=== PATIENT | female | born 2000 | race Two or more races ===

== ENCOUNTER 2021-10-25 22:20 | Inpatient (IN) | payer MEDICAID ==
[~2021-10-25] VITALS: Ht 149.9 cm; Wt 50.8 kg
[2021-10-26] VITALS (7 sets, daily range): BP systolic 90–115; BP diastolic 53–75
[2021-10-26] MEDS ORDERED: OLANZapine 5 MG RAPDIS TABLET PO PRN (01:15)
[2021-10-26] MEDS ORDERED: INFLUENZA VIRUS VACCINE QVS 2021-22 (6MO+)/PF 60 MCG/0.5 ML SYRINGE IM. ONE (01:30)
[2021-10-26] MEDS: LORazepam 2 MG TABLET PO PRN ×2 (10:09→17:44)
[2021-10-26] MEDS ORDERED: ACETAMINOPHEN 325 MG TABLET PO PRN (19:15)
[2021-10-26] MEDS ORDERED: OLANZapine 5 MG RAPDIS TABLET PO ONE (19:15)
[2021-10-26] MEDS ORDERED: MAG HYDROX/AL HYDROX/SIMETH ES 30 ML SUSPENSION UDCUP PO PRN (19:15)
[2021-10-26] MEDS ORDERED: LOPERAMIDE HCL 2 MG CAPSULE PO PRN (19:15)
[2021-10-26] MEDS ORDERED: TUBERCULIN, PURIFIED PROTEIN DERIVATIVE 5 TU/0.1 ML SYRINGE ID ONE (19:15)
[2021-10-26] MEDS ORDERED: PROMETHAZINE HCL 25 MG TABLET PO PRN (19:15)
[2021-10-26] MEDS ORDERED: GuaiFENesin/D-METHORPHAN [SUGAR-FREE] 200-20MG/10 ML SYRUP UDCUP PO PRN (19:15)
[2021-10-26] MEDS: MELATONIN 5 MG TABLET PO SCH (20:25)
[2021-10-27 06:16] VITALS: BP 90/52
[2021-10-27 07:35] LABS: BASOPHILS % (AUTO) 0.6 % (0.0-2.0); EOSINOPHILS % (AUTO) 3.6 % (1.0-6.0); HEMATOCRIT 38.3 % (36-46); LYMPHOCYTES # (AUTO) 2.8 K/uL (1.0-4.8); MEAN CORPUSCULAR HGB CONC 33.9 G/dL (31.0-37.0); MEAN CORPUSCULAR VOLUME 86 fL (80-100); MONOCYTES # (AUTO) 0.6 K/uL (0.1-1.0); MONOCYTES % (AUTO) 9.6 % (2.0-9.0); NEUTROPHILS # (AUTO) 2.2 K/uL (1.8-7.7); NEUTROPHILS % (AUTO) 37.2 % (40.0-70.0); PLATELET COUNT (AUTO) 269 K/uL (150-450); RED BLOOD CELL COUNT(AUTO) 4.47 MIL/uL (4.00-5.20); RED CELL DISTRIBUTION WIDTH 14.6 % (11.5-14.5)
[2021-10-27 08:03] LABS: ALANINE AMINOTRANSFERASE 13 U/L (12-78); ALBUMIN 3.5 g/dL (3.4-5.0); ALKALINE PHOSPHATASE 48 U/L (46-116); ANION GAP 10 mmol/L (8-16); ASPARTATE AMINOTRANSFERASE 13 U/L (15-37); BILIRUBIN,TOTAL 0.5 mg/dL (0.1-1.0); CALCIUM, TOTAL 8.4 mg/dL (8.8-10.5); CARBON DIOXIDE 26 mmol/L (22-29); CHLORIDE 107 mmol/L (98-107); CHOL/HDL RATIO 2.6 (3.9-5.7); CHOLESTEROL 117 mg/dL (131-200); CREATININE 0.54 mg/dL (0.60-1.30); FREE T4 (FREE THYROXINE) 1.12 ng/dL (0.76-1.46); GLUCOSE,RANDOM 70 mg/dL (70-110); HCG,QUANTITATIVE < 1 mIU/mL (0-6); HDL CHOLESTEROL 45 mg/dL (40-60); LDL CHOL (CALC.) 62 mg/dL (0-130); POTASSIUM 4.1 mmol/L (3.5-5.1); SODIUM SERUM 143 mmol/L (136-145); THYROID STIMULATING HORMONE 0.35 uIU/mL (0.36-3.74); TRIGLYCERIDES 48 mg/dL (15-150); UREA NITROGEN, BLOOD 10 mg/dL (7-18)
[2021-10-27 08:05] LABS: GLOMERULAR FILTR. RATE CALC > 60 mL/min (>60)
[2021-10-27] MEDS: MULTIVITAMINS WITH MINERALS, THERAPEUTIC TABLET PO SCH (08:07)
[2021-10-27] MEDS: OMEGA-3/DHA/EPA/FISH OIL 1,000 MG CAPSULE PO SCH (08:07)
[2021-10-27] MEDS: NALTREXONE HCL 50 MG TABLET PO SCH (08:07)
[2021-10-27] MEDS: FOLIC ACID 1 MG TABLET PO SCH (08:07)
[2021-10-27] MEDS: THIAMINE 100 MG TABLET PO SCH ×2 (08:08→16:02)
[2021-10-27] MEDS: FLUoxetine HCL 20 MG CAPSULE PO SCH (08:08)
[2021-10-27 08:20] VITALS: BP 103/69
[2021-10-27 16:26] VITALS: BP 99/64
[2021-10-27] MEDS: MELATONIN 5 MG TABLET PO SCH (20:09)
[2021-10-27] MEDS: OLANZapine 5 MG RAPDIS TABLET PO SCH (20:09)
[2021-10-27] MEDS: LamoTRIgine 25 MG TABLET PO SCH (20:10)
[2021-10-28] VITALS: BP 108/66
[2021-10-28 08:09] VITALS: BP 100/60
[2021-10-28] MEDS: BuPROPion HCL XL 150 MG ER TABLET PO SCH (08:29)
[2021-10-28] MEDS: MULTIVITAMINS WITH MINERALS, THERAPEUTIC TABLET PO SCH (08:30)
[2021-10-28] MEDS: FLUoxetine HCL 20 MG CAPSULE PO SCH (08:31)
[2021-10-28] MEDS: THIAMINE 100 MG TABLET PO SCH ×2 (08:32→16:21)
[2021-10-28] MEDS: NALTREXONE HCL 50 MG TABLET PO SCH (08:32)
[2021-10-28] MEDS: FOLIC ACID 1 MG TABLET PO SCH (08:32)
[2021-10-28] MEDS: OMEGA-3/DHA/EPA/FISH OIL 1,000 MG CAPSULE PO SCH (08:32)
[2021-10-28] MEDS: LORazepam 2 MG TABLET PO PRN ×2 (08:33→19:09)
[2021-10-28] MEDS: MAGNESIUM HYDROXIDE SUSPENSION 30 ML UDCUP PO PRN (08:46)
[2021-10-28 16:11] VITALS: BP 101/66
[2021-10-28] MEDS: OLANZapine 5 MG RAPDIS TABLET PO SCH (20:19)
[2021-10-28] MEDS: LamoTRIgine 25 MG TABLET PO SCH (20:20)
[2021-10-28] MEDS: MELATONIN 5 MG TABLET PO SCH (20:20)
[2021-10-28] MEDS: ZOLPIDEM TARTRATE 10 MG TABLET PO PRN (20:27)
[2021-10-28] MEDS ORDERED: GABAPENTIN 300 MG CAPSULE PO PRN (20:45)
[2021-10-28] MEDS ORDERED: OLANZapine 10 MG RAPDIS TABLET PO SCH (21:00)
[2021-10-29 00:14] VITALS: BP 108/71
[2021-10-29 08:08] VITALS: BP 104/60
[2021-10-29] MEDS: BuPROPion HCL XL 150 MG ER TABLET PO SCH (08:12)
[2021-10-29] MEDS: FOLIC ACID 1 MG TABLET PO SCH (08:12)
[2021-10-29] MEDS: FLUoxetine HCL 20 MG CAPSULE PO SCH (08:12)
[2021-10-29] MEDS: NALTREXONE HCL 50 MG TABLET PO SCH (08:13)
[2021-10-29] MEDS: THIAMINE 100 MG TABLET PO SCH ×2 (08:13→16:36)
[2021-10-29] MEDS: HydrOXYzine PAMOATE 50 MG CAPSULE PO PRN (08:14)
[2021-10-29] MEDS: MULTIVITAMINS WITH MINERALS, THERAPEUTIC TABLET PO SCH (08:14)
[2021-10-29] MEDS: OMEGA-3/DHA/EPA/FISH OIL 1,000 MG CAPSULE PO SCH (08:20)
[2021-10-29] MEDS: MAGNESIUM HYDROXIDE SUSPENSION 30 ML UDCUP PO PRN (12:42)
[2021-10-29 16:03] VITALS: BP 115/62
[2021-10-29] MEDS: OLANZapine 10 MG RAPDIS TABLET PO SCH (20:06)
[2021-10-29] MEDS: MELATONIN 5 MG TABLET PO SCH (20:06)
[2021-10-29] MEDS: LamoTRIgine 25 MG TABLET PO SCH (20:06)
[2021-10-29] MEDS: ZOLPIDEM TARTRATE 10 MG TABLET PO PRN (21:57)
[2021-10-30 06:23] VITALS: BP 122/72
[2021-10-30] MEDS: OMEGA-3/DHA/EPA/FISH OIL 1,000 MG CAPSULE PO SCH (08:01)
[2021-10-30] MEDS: THIAMINE 100 MG TABLET PO SCH ×2 (08:01→16:03)
[2021-10-30] MEDS: NALTREXONE HCL 50 MG TABLET PO SCH (08:01)
[2021-10-30] MEDS: FOLIC ACID 1 MG TABLET PO SCH (08:01)
[2021-10-30] MEDS: MULTIVITAMINS WITH MINERALS, THERAPEUTIC TABLET PO SCH (08:01)
[2021-10-30] MEDS: BuPROPion HCL XL 150 MG ER TABLET PO SCH (08:01)
[2021-10-30 08:12] VITALS: BP 103/62
[2021-10-30] MEDS: HydrOXYzine PAMOATE 50 MG CAPSULE PO PRN (13:43)
[2021-10-30 16:33] VITALS: BP 106/66
[2021-10-30] MEDS: OLANZapine 10 MG RAPDIS TABLET PO SCH (20:00)
[2021-10-30] MEDS: MELATONIN 5 MG TABLET PO SCH (20:01)
[2021-10-30] MEDS: LamoTRIgine 25 MG TABLET PO SCH (20:01)
[2021-10-31 06:00] VITALS: BP 118/64
[2021-10-31 08:05] VITALS: BP 108/60
[2021-10-31] MEDS: NALTREXONE HCL 50 MG TABLET PO SCH (09:13)
[2021-10-31] MEDS: MULTIVITAMINS WITH MINERALS, THERAPEUTIC TABLET PO SCH (09:13)
[2021-10-31] MEDS: THIAMINE 100 MG TABLET PO SCH ×2 (09:13→17:13)
[2021-10-31] MEDS: BuPROPion HCL XL 150 MG ER TABLET PO SCH (09:14)
[2021-10-31] MEDS: OMEGA-3/DHA/EPA/FISH OIL 1,000 MG CAPSULE PO SCH (09:14)
[2021-10-31] MEDS: FOLIC ACID 1 MG TABLET PO SCH (09:14)
[2021-10-31 16:04] VITALS: BP 126/71
[2021-10-31] MEDS: OLANZapine 10 MG RAPDIS TABLET PO SCH (21:34)
[2021-10-31] MEDS: MELATONIN 5 MG TABLET PO SCH (21:34)
[2021-10-31] MEDS: LamoTRIgine 25 MG TABLET PO SCH (21:34)
[2021-11-01 00:50] VITALS: BP 117/75
[2021-11-01] MEDS: THIAMINE 100 MG TABLET PO SCH (08:04)
[2021-11-01] MEDS: MULTIVITAMINS WITH MINERALS, THERAPEUTIC TABLET PO SCH (08:04)
[2021-11-01] MEDS: NALTREXONE HCL 50 MG TABLET PO SCH (08:04)
[2021-11-01] MEDS: BuPROPion HCL XL 150 MG ER TABLET PO SCH (08:04)
[2021-11-01] MEDS: FOLIC ACID 1 MG TABLET PO SCH (08:04)
[2021-11-01] MEDS: OMEGA-3/DHA/EPA/FISH OIL 1,000 MG CAPSULE PO SCH (08:05)
[2021-11-01 09:03] VITALS: BP 111/73
[2021-11-01] MEDS ORDERED: OLAN10TA26 PO (13:35)
[2021-11-01] MEDS ORDERED: OMEG-108 PO (13:35)
[2021-11-01] MEDS ORDERED: LAMO25TA66 PO (13:35)
[2021-11-01] MEDS ORDERED: MELA5TAB40 PO (13:35)
[2021-11-01] MEDS ORDERED: NALT50TA PO (13:35)
[2021-11-01] MEDS ORDERED: BUPR-49 PO (13:35)
== END 2021-11-01 16:04 | disposition home or self-care (01) | DRG 750 ==
LOC: B3A 10-26 01:14
PROVIDERS: ADMIT Psychiatry & Neurology Psychiatry; ATTEND Psychiatry & Neurology Psychiatry
DX: F25.9 Schizoaffective disorder, unspecified (principal); G93.41 Metabolic encephalopathy; F31.81 Bipolar II disorder; F22 Delusional disorders; F15.10 Other stimulant abuse, uncomplicated; F90.9 Attention-deficit hyperactivity disorder, unspecified type; F06.30 Mood disorder due to known physiological condition, unspecified; F17.200 Nicotine dependence, unspecified, uncomplicated; F19.10 Other psychoactive substance abuse, uncomplicated; Z55.9 Problems related to education and literacy, unspecified; Z59.9 Problem related to housing and economic circumstances, unspecified; Z63.9 Problem related to primary support group, unspecified; Z65.3 Problems related to other legal circumstances; Z79.899 Other long term (current) drug therapy
CPT/HCPCS: 80053; 80061; 83036; 84436; 84439; 84443; 84702; 85025; 86592; 90686; Q9967